=== PATIENT | female | born 1985 | race Caucasian/White ===

== ENCOUNTER 2024-11-15 14:38 | Emergency (ER) | payer MEDICAID, SELFPAY ==
--- NOTE | 2024-11-15 14:50 | ED_ITS ---
HPI - General Adult General Chief complaint: Overdose Stated complaint: OD,NARCAN GIVEN W/GOOD RESULT PER EMS Time Seen by Provider: 11/15/24 14:42 Source: patient and EMS Mode of arrival: EMS Limitations: other (Patient very poor historian) History of Present Illness ED Provider: MELINDA Willoughby HPI narrative: This is a 39-year-old female history of substance use disorder presents to the emergency department via ambulance with concerns for overdose unclear on what. According to EMS patient was found in the lobby of the police department, minimally responsive was given Narcan x2, 4 mg intranasal with good effect. After Narcan was given patient was subsequently incontinent of stool and very nauseous. When I asked her what she used she refuses to tell me. She states she just does not feel good after they gave her medicine. She does not remember what she used. Denies pain. She is angry to be here. Not si not hi. Related Data Allergies Allergy/AdvReac Type Severity Reaction Status Date / Time No Known Allergies Allergy Unverified 11/15/24 15:08 [No Known Allergies*] Review of Systems Review of Systems: Yes all other systems are reviewed and are negative [facility] Past Medical History Attestation statement: The following information was validated with the patient. Source: old records reviewed and nursing notes reviewed Medical History (Updated 11/15/24 @ 16:23 by Gerri Curiel) Suicidal ideation Physical Exam ED Vital Signs: Vital Signs - 24 hr 11/15/24 16:21 Temperature 98 F Pulse Rate 77 Respiratory Rate 16 Blood Pressure 100/71 Pulse Oximetry 97 Oxygen Delivery Method Room Air BMI result Body Mass Index 22.7 vss Appearance: Alert.? Oriented X3.? No acute distress.? Head: Normocephalic, atraumatic, no step-offs or deformities Eyes: Pupils equal, round and reactive to light.? Neck: Normal inspection.? Neck supple.? CVS: Refusing. No cardiopulmonary distress noted Respiratory: No respiratory distress.? Abdomen: Refused Skin: Skin warm and dry.? Normal skin color.? Normal skin turgor.? Extremities: 5/5 strength to bilateral upper and lower extremities Neuro: Oriented X 3.? No motor deficit.? No sensory deficit. CN 2-12 intact Course Reevaluation(s) Reevaluation #1: Patient gave the wrong information on arrival the name in the chart is incorrect. Her boyfriend states name is Matilda Larsen, 89 this was also confirmed w/ PD. Will speak to registration about fixing patients chart. Time: 16:04 Reevaluation #2: Patient came in soiled she was cleaned up. She is refusing any further intervention refusing vital signs. Refusing x-ray. Refusing CT scan. She is alert and oriented x4. She states she just does not feel well after Narcan. She is refusing all care and states she would like to leave. I explained to her she can only leave with a sober ride. Will send her home with Narcan Time: 16:12 Reevaluation #3: Patient allowed vitals prior to discharge. She is leaving against medical advice. Significant other here for patient. I did go over risks of leaving against medical advice with patient, charge nurse Stefany Hudson at the bedside. She continues to refuse further care and treatment and she would just like to leave. She signed AMA paperwork. Medical Decision Making Medical Decision Making [facility] Narrative: 39-year-old female presents from police department for she was unresponsive was given Narcan and responded well. Physical exam patient agitated. History and physical exam concerning for opiate overdose as she responded well to Narcan however she is not telling us exactly what she took she says she does not recall. No signs of trauma. No signs of acute respiratory distress. Plan- medical clearance. Differential Diagnosis Differential Diagnoses: The differential diagnosis associated with the presentation includes (History and physical exam concerning for opiate overdose as she responded well to Narcan however she is not telling us exactly what she took she says she does not recall. No signs of trauma. No signs of acute respiratory distress.) Admission/Observation Consideration of admission/observation: Escalation of care including admission/observation considered Lab Data MDM Lab Attestation statement: I reviewed the patient's lab results. Independent Interpretation I performed an independent interpretation of an: Plain X-Ray Radiology Impression Discussion of test interpretation with radiology: I have reviewed the radiologist's reading. Chronic Conditions Patient?s care impacted by: Other (see hpi ) Critical Care Time Critical Care Time Critical Care Time: No Discharge Plan Discharge Clinical Impression: Drug overdose Patient Disposition: Left Against Medical Advice Instructions: Adult Overdose (ED) Additional Instructions: Take your medications as prescribed. If you were prescribed antibiotics today, it is important that you take your medication to their entirety, do not skip any doses, do not finish them early. Follow-up with your primary care provider this week. Return to the emergency department with new or worsening symptoms. Such as fevers, chills, chest pain, shortness of breath, nausea, vomiting, dizziness, headache, vision changes, lethargy In case of emergency call 911 You have refused medical care in your refusing laboratory studies, imaging. You are leaving against medical advice Risks include , respiratory distress, worsening condition, decreased quality of life. You verbalized understanding of this. We have given you Narcan police have this finding at all times. This can save your life. Stand Alone Forms: Against Medical Advice Print Language: Mohawk
[2024-11-15 15:07] VITALS: BP 140/77; PULSE 96; O2SAT 99; BMI 22.7
--- NOTE | 2024-11-15 16:08 | PC.NURSE ---
Patients friend sotero confirmed patients identity- pa and registration aware chart to be updated
[2024-11-15 16:21] VITALS: BP 100/71; PULSE 77; RESP 16; TEMP 36.6; O2SAT 97
--- NOTE | 2024-11-15 16:49 | PC.NURSE ---
This RN worked with the provider and registration, along with PD and primary nurse to attempt and locate pts actual legal name as the initial account was not the right person, staff was able to get the correct information and able to merge the charts. Pt friend Ned who was the one who found her on the ground was at bedside to take her out of ED. Pt signed AMA, downtime form filled out as pt chart was still the wro
--- NOTE | 2024-11-15 16:54 | PC.NURSE ---
This RN/PA/primary RN/PD/registration attempted to get patient information as she was registered under the wrong name. Pt was not able to give us any identifying information. Primary RN was able to get in contact with her friend Ned who was able to verify her information, charts were able to be be merged. Down time AMA form done as it was before the charts were merged. This RN and PA went to bedside and went through risks of leaving AMA, pt still wanted to leave, form signed, Ned present to walk her out of ED. Vitals able to be obtained prior to dc.
[2024-11-15 17:00] VITALS: BP 100/71; PULSE 77; RESP 16; TEMP 36.6; O2SAT 97
== END 2024-11-15 17:00 | disposition left against medical advice (07) ==
LOC: HO.ED 16:47
PROVIDERS: Emergency Provider Emergency Medicine; PCP Family Medicine
DX: T40.2X1A Poisoning by other opioids, accidental (unintentional), initial encounter (principal); R40.4 Transient alteration of awareness; R45.1 Restlessness and agitation; Z71.51 Drug abuse counseling and surveillance of drug abuser
CPT/HCPCS: 99283

== ENCOUNTER 2024-11-15 16:16 | Outpatient (REF) | payer SELFPAY | END 2024-11-15 16:17 | disposition home or self-care (01) | LOC: CF 16:16 | DX: Z13.89 Encounter for screening for other disorder (principal) ==

== ENCOUNTER 2024-12-04 00:37 | Emergency (ER) | payer MEDICAID, SELFPAY ==
[2024-12-04 00:40] VITALS: BP 118/91; PULSE 90; RESP 18; O2SAT 93; BMI 19.9
--- NOTE | 2024-12-04 00:43 | PC.NURSE ---
Once pt became more alert, vitals were obtained at which time she required frequent verbal stimulation due to somnolence. Once vitals completed, RN attempted to guide patient to nearby stretcher at which time she declined stating I didn't do that much, i m fine. I hate this hospital . RN obtained OSWALDO Lea for primary evaluation and to discuss concerns, risks and dangers of premature departure from the ER up to and including . The pt was not very receptive, often interrupting the provider during the conversation however despite this the patient did report that she was aware of and knew the consequences of Narcan wearing off in her system before the narcotics or drugs did. she was awake, alert, verbal, and ambulating independently without distress noted at time of departure from the triage area.
[2024-12-04 01:12] VITALS: BP 118/91; PULSE 90; RESP 18; TEMP 36.8; O2SAT 93
== END 2024-12-04 01:05 | disposition left against medical advice (07) ==
PROVIDERS: Emergency Provider Internal Medicine; PCP Family Medicine
DX: T50.901A Poisoning by unspecified drugs, medicaments and biological substances, accidental (unintentional), initial encounter (principal); R40.0 Somnolence; Y92.9 Unspecified place or not applicable; F14.10 Cocaine abuse, uncomplicated; F43.12 Post-traumatic stress disorder, chronic; F39 Unspecified mood [affective] disorder; Z53.29 Procedure and treatment not carried out because of patient's decision for other reasons
CPT/HCPCS: 99281; 99282

== ENCOUNTER 2025-04-08 21:41 | Emergency (ER) | payer SELFPAY ==
--- NOTE | ~2025-04-08 | XR_ITS ---
CLINICAL HISTORY: deformity trauma 2 view right forearm Comparison: CR - XR WRIST RT 2V - 04/08/25 22:41 EDT Findings: Please see same-day wrist report for discussion of distal radius fracture. No fracture deformity of the proximal radius or ulna. Visualized portions of the elbow are unremarkable. No joint effusion. No significant arthritic change. No radiopaque foreign body. IMPRESSION: No fracture deformity of the proximal radius or ulna. This document has been electronically signed by: Ferny Harman MD on 04/08/2025 23:22:32
--- NOTE | ~2025-04-08 | XR_ITS ---
CLINICAL HISTORY: deformity trauma 3 view right wrist Comparison: None provided Findings: There is a comminuted transverse fracture of the distal radius with 1/2 shaft width of dorsal displacement of the distal fragment. Fracture is impacted by 1 cm. Fracture extends along the dorsal surface to involve the dorsal articular surface of the radius. No acute fracture deformity of the ulna. There is widening of the distal radioulnar joint. No radiopaque foreign body. IMPRESSION: Impacted, comminuted and intra-articular distal radius fracture with dorsal displacement. This document has been electronically signed by: Ferny Harman MD on 04/08/2025 23:21:46
--- NOTE | ~2025-04-08 | XR_ITS ---
CLINICAL HISTORY: post reduction 1 view right wrist Comparison: CR - XR WRIST RT 2V - 04/08/25 22:41 EDT Findings: There has been improvement of alignment of the distal radial fracture. Fracture is now impacted by 5 mm and there is 6 mm of dorsal displacement. Fracture remains comminuted with extension to the dorsal articular surface. No significant loss of joint space, osteophyte, or erosions. There is splint material, partially obscuring fine detail. IMPRESSION: 1. Interval improvement in alignment of the distal radial fracture. This document has been electronically signed by: Ferny Harman MD on 04/09/2025 02:26:31
[2025-04-08 22:12] VITALS: BP 118/68; PULSE 82; RESP 20; TEMP 36.9; O2SAT 98; BMI 21.5
--- NOTE | 2025-04-08 22:25 | PC.NURSE ---
assumed care of pt, in no apparent distress, ambulatory and A+Ox3
--- NOTE | 2025-04-08 22:40 | PC.NURSE ---
pt ambulated to recieve xray of right wrist and forearm
--- NOTE | 2025-04-08 22:48 | PC.NURSE ---
pt ambulated back to room, warm blanket given for comfort and ice packet given to relieve wrist pain
--- NOTE | 2025-04-08 23:53 | ED_ITS ---
HPI - General Adult General Chief complaint: Fall Stated complaint: right hand and arm and head injury Time Seen by Provider: 04/08/25 23:15 Source: patient Limitations: no limitations History of Present Illness ED Provider: Elham Lea PA-C HPI narrative: 40-year-old female with a history of polysubstance abuse, mood disorder, PTSD, who presents after fall. Patient states she jumped out of the 1st floor [place] a [place], she states she was locked out of her home. Patient slipped and fell, landing on the right wrist then struck the right side of her face on the ground. Patient has obvious deformity to the right wrist. Related Data Previous Rx's ?Medication ?Instructions ?Recorded ketorolac 10 mg tablet 10 mg PO Q6H PRN pain #20 ta bs 04/09/25 Allergies Allergy/AdvReac Type Severity Reaction Status Date / Time No Known Allergies (No Known Allergy Unverified 04/08/25 22:18 Allergies*) Review of Systems 2 Review of Systems: Yes all other systems are reviewed and are negative Constitutional: Constitutional: Denies fatigue and Denies fever(s) Musculoskeletal: Musculoskeletal: Reports arthralgias and Reports joint swelling Endocrine: Endocrine: Denies fatigue PMFSH Past Medical History Attestation statement: The following information was validated with the patient. Medical History (Updated 04/09/25 @ 04:33 by MELINDA Lerner) Suicidal ideation Social History Social History Smoked in Last 30 Days: Yes Use of substances other than those prescribed or required for medical reasons: Yes Substance Use Type: Crack/Cocaine, Heroin and Marijuana Substance Use Type Other:: fentanyl Substance Use Frequency: Monthly Advance Directives: No Advance Directives Information Provided: No Patient : No Physical Exam ED Vital Signs: Vital Signs - 24 hr 04/08/25 22:12 04/09/25 02:40 Temperature 98.4 F Pulse Rate 82 78 Respiratory Rate 20 20 Blood Pressure 118/68 148/85 H Pulse Oximetry 98 99 Oxygen Delivery Method Room Air Room Air BMI result Body Mass Index 21.5 Const Other: Awake, appears older than stated age, 3 cm linear laceration over right brow no longer bleeding deep to subcu tissue Orientation/consciousness: patient oriented x3 Resp Effort & Inspection: normal respiratory effort Cardio Other: Normal peripheral perfusion Skin Other: Warm dry no rash Neuro General: patient oriented x3, gait normal, no focal motor deficits and CN's II- XI intact bilaterally Extrem Other: The right wrist is swollen and ecchymotic with deformity at the wrist along the radial aspect, unable to flex or extend, she can move her fingers sensation intact Psych Other: Anxious, uncooperative at times, difficult to manage her pain Course Consultations Consultation #1: per ortho .... Dr. Mercado...... The patient follow up in the office, I have let her know that I reduce the fracture and place the patient in a splint, she was in agreement with the plan. Time: 23:54 Medications Administered Discontinued Medications Generic Name Dose Route Start Last Admin Trade Name Freq PRN Reason Stop Dose Admin Hydromorphone HCl 1 mg 04/09/25 00:52 04/09/25 01:02 Hydromorphone Hcl 1 Mg/Ml Syringe IVPUSH 04/09/25 00:53 1 mg ONCE ONE Administration Protocol Hydromorphone HCl 1 mg 04/09/25 01:16 04/09/25 01:20 Hydromorphone Hcl 1 Mg/Ml Syringe IVPUSH 04/09/25 01:17 1 mg ONCE ONE Administration Protocol Midazolam HCl 4 mg 04/09/25 00:52 04/09/25 01:09 Midazolam Hcl 2 Mg/2 Ml Vial IVPUSH 04/09/25 00:53 4 mg ONCE ONE Administration Naloxone HCl 4 mg 04/09/25 01:25 04/09/25 01:27 Naloxone Hcl Nasal 4 Mg [employer] NOSTRILALT 04/09/25 01:26 4 mg ONCE ONE Administration Procedures Procedure Narrative Procedure Narrative: Ultrasound-guided IV 18 gauge 1-3/4 inch IV placed in left upper extremity, adequate blood return, flushes well, secured with Tegaderm Laceration Laceration 1: Site: face Side (If applicable): right Size (cm): 2 Description: linear Depth: simple, single layer Local Anesthetic: lidocaine 1% and with epi Amount of anesthesia used (mL): 3 Pre-repair: irrigated extensively Skin layer closed with: vicryl Size (cm): 5-0 Number of sutures: 6 Technique: simple, interrupted Orthopedic Fracture Reduction Fracture #1: Time Out Performed: No Side: right Fracture Reduction Location: radius Analgesia: other (P.r.n. Dilaudid and Versed) Technique: traction splint and finger traps Post Reduction X-rays Demonstrate: other (Not as reduced as I would like, the patient did not tolerate it well, we will not allow for another attempt) Post-reduction neuro exam: intact Post-reduction vascular exam: intact Splint Applied: Yes Patient Tolerated Procedure: other (Difficult to manage pain, she did not tolerate the procedure well despite the use of Dilaudid and Versed) Orthopedic Splinting/Casting Injury #1: Side: right Upper Extremity Injury Location: wrist Upper Extremity Immobilizer: sling/shoulder immobilizer and sugar tong splint Medical Decision Making Medical Decision Making MDM Narrative: 40-year-old female with a history of polysubstance abuse, mood disorder, PTSD, who presents after fall. Patient states she jumped out of the 1st floor of a [place] ranch, she states she was locked out of her home. Patient slipped and fell, landing on the right wrist then struck the right side of her face on the ground. Patient has obvious deformity to the right wrist. Problem: Polysubstance abuse History: Per patient I have considered the following differential diagnoses: Fracture, dislocation, contusion, laceration, sprain Plan: X-rays obtained from triage, she has a distal radial fracture. She will require fracture reduction and splinting. She also has a laceration. Her tetanus is not up-to-date. We will reach out to orthopedic service for follow up guidance. We will have to heavily mitigate the patient given she has tolerance secondary to her known IV drug abuse, which she has been very forthcoming about. I will not be sending the patient with opiate analgesia, they actively use heroin. I will send with Toradol. I have independently reviewed the following tests: Labs: No leukocytosis, not anemic, no electrolyte abnormality noted, not Right forearm:Findings: Please see same-day wrist report for discussion of distal radius fracture. No fracture deformity of the proximal radius or ulna. Visualized portions of the elbow are unremarkable. No joint effusion. No significant arthritic change. No radiopaque foreign body. IMPRESSION: No fracture deformity of the proximal radius or ulna. Right wrist, Findings: There is a comminuted transverse fracture of the distal radius with 1/2 shaft width of dorsal displacement of the distal fragment. Fracture is impacted by 1 cm. Fracture extends along the dorsal surface to involve the dorsal articular surface of the radius. No acute fracture deformity of the ulna. There is widening of the distal radioulnar joint. No radiopaque foreign body. IMPRESSION: Impacted, comminuted and intra-articular distal radius fracture with dorsal displacement. Right wrist postreduction film:Findings: There has been improvement of alignment of the distal radial fracture. Fracture is now impacted by 5 mm and there is 6 mm of dorsal displacement. Fracture remains comminuted with extension to the dorsal articular surface. No significant loss of joint space, osteophyte, or erosions. There is splint material, partially obscuring fine detail. IMPRESSION: 1. Interval improvement in alignment of the distal radial fracture. Lab Data 04/09/25 00:42 04/09/25 00:42 Labs: Lab Results 04/09/25 Range/Units 00:42 WBC 8.9 (4.8-10.8) X10*3/uL RBC 3.80 L (4.20-5.50) X10*6/uL Hgb 10.7 L (12.0-16.0) g/dl Hct 32.1 L (37.0-47.0) % MCV 84.5 (80.0-98.0) fL MCH 28.2 (27.0-33.0) pg MCHC 33.3 (31.0-35.0) g/dl RDW 13.2 (11.0-16.0) % Plt Count 301 (160-400) X10*3/uL MPV 10.4 (9.4-12.3) fL Immature Gran % (Auto) 0.4 (0.0-0.4) % Neut % (Auto) 76.2 H (45-73) % Lymph % (Auto) 15.9 L (20-40) % F[place]ardo % (Auto) 7.0 (2-11) % Eos % (Auto) 0.4 (0-4) % Baso % (Auto) 0.1 (0-2) % Lymph # (Auto) 1.4 (1.2-4.9) X10*3/uL [place]ardo # (Auto) 0.6 (0.1-1.2) X10*3/uL Eos # (Auto) 0.0 (0.0-0.4) X10*3/uL Baso # (Auto) 0.0 (0.0-0.2) X10*3/uL Abs Immat Gran (auto) 0.04 H (0.00-0.03) X10*3/uL Absolute Neuts (auto) 6.8 (2.0-8.3) x10*3/uL Absolute Nucleated RBC 0.000 (0.0-0.012) X10*3/uL Nucleated RBC % (auto) 0.0 (0.0-0.2) /100WBC Sodium 138 (135-145) mmol/L Potassium 4.8 (3.3-5.1) mmol/L Chloride 103 (96-108) mmol/L Carbon Dioxide 24 (22-29) mmol/L Anion Gap 16 (12-20) BUN 7 L (9-16) mg/dL Creatinine 0.60 (0.5-1.4) mg/dL Estim Creat Clear Calc 86.7 Estimated GFR > 60 Random Glucose 101 (60-115) mg/dL Calcium 8.6 (8.4-10.2) mg/dL Magnesium 1.9 (1.6-2.6) mg/dL Total Bilirubin 0.2 (0.0-1.0) mg/dL AST 34 H (5-31) U/L ALT 12 (0-31) U/L Alkaline Phosphatase 78 (39-117) U/L Total Protein 7.6 (6.5-8.0) g/dL Albumin 4.3 (3.5-5.0) g/dL Beta HCG, Quant < 2 mIU/mL Critical Care Time Critical Care Time Critical Care Time: Yes Total Critical Care Time: 45 Attestation: I Elham Lea PA-C have personally performed 45 minutes of critical care time not including lines and procedures; fracture requiring fracture reduction and splinting, IV analgesia, laceration Discharge Plan Discharge Clinical Impression: Distal radius fracture, right, Laceration of eyebrow, right Patient Disposition: Home, Self-Care Instructions: Wrist Fracture in Adults (ED), Facial Laceration (ED) Additional Instructions: 6 stitches were used to repair your laceration, they will dissolve on their own. Your tetanus vaccine was updated. In regard to the fracture, I have provided you with the orthopedic provider who will be seeing you as an outpatient, her name is Dr. Mercado. Call tomorrow to schedule a follow up appointment. Use the ketorolac as needed for pain. Prescriptions: New ketorolac 10 mg tablet 10 mg PO Q6H PRN (Reason: pain) Qty: 20 0RF Rx Instructions: maximum total duration of 5 days from all oral, intranasal, or parenteral formulations. The patient received an IV dose of Toradol here in the emergency room. Referrals: Kelly Mercado MD [Physician, Hand Surgery] Referral Note: right distal radial fx Print Language: Liberian
[2025-04-09 00:46] LABS: Hematocrit 32.1 % (37.0-47.0); Hemoglobin 10.7 g/dl (12.0-16.0); Imm Gran Abs Auto 0.04 X10*3/uL (0.00-0.03); Imm Gran Pct Auto 0.4 % (0.0-0.4); Lymphocytes Absolute Auto 1.4 X10*3/uL (1.2-4.9); MANUAL DIFF FLAG NO; Mean Corpuscular HGB Conc 33.3 g/dl (31.0-35.0); Mean Corpuscular Hemoglobin 28.2 pg (27.0-33.0); Mean Corpuscular Volume 84.5 fL (80.0-98.0); NRBC Abs Auto 0.000 X10*3/uL (0.0-0.012); NRBC Pct Auto 0.0 /100WBC (0.0-0.2); Platelet Count 301 X10*3/uL (160-400); Red Blood Count 3.80 X10*6/uL (4.20-5.50); White Blood Count 8.9 X10*3/uL (4.8-10.8)
[2025-04-09 01:11] LABS: Alanine Aminotransferase 12 U/L (0-31); Albumin Level 4.3 g/dL (3.5-5.0); Alkaline Phosphatase 78 U/L (39-117); Anion Gap 16 (12-20); Aspartate Amino Transferase 34 U/L (5-31); Blood Urea Nitrogen 7 mg/dL (9-16); Calcium 8.6 mg/dL (8.4-10.2); Carbon Dioxide 24 mmol/L (22-29); Chloride 103 mmol/L (96-108); Creatinine Clr Calc Pharmacy 86.7; Estimated Glomerular Filt Rate > 60; Magnesium 1.9 mg/dL (1.6-2.6); Potassium 4.8 mmol/L (3.3-5.1); Sodium 138 mmol/L (135-145); Total Protein 7.6 g/dL (6.5-8.0)
[2025-04-09] MEDS: Naloxone HCl Nasal 4 MG SPRAY NOSTRILALT (01:27)
[2025-04-09 02:40] VITALS: BP 148/85; PULSE 78; RESP 20; O2SAT 99
[2025-04-09 04:46] VITALS: BP 134/92; PULSE 61; RESP 16; TEMP 36.6; O2SAT 100
[2025-04-09] MEDS: Diphth,Pertus(ACell),Tet Adult 0.5 ML SYRINGE IM (04:47)
[2025-04-09 04:53] VITALS: BP 134/92; PULSE 61; RESP 16; TEMP 36.6; O2SAT 100
== END 2025-04-09 04:53 | disposition home or self-care (01) ==
PROVIDERS: Physician Assistant Medical; Emergency Provider Emergency Medicine
DX: S01.111A Laceration without foreign body of right eyelid and periocular area, initial encounter (principal); S52.91XA Unspecified fracture of right forearm, initial encounter for closed fracture; R10.2 Pelvic and perineal pain; M25.531 Pain in right wrist; X50.1XXA Overexertion from prolonged static or awkward postures, initial encounter; W17.89XA Other fall from one level to another, initial encounter; Y93.39 Activity, other involving climbing, rappelling and jumping off; Y92.003 Bedroom of unspecified non-institutional (private) residence as the place of occurrence of the external cause; Y99.8 Other external cause status; Z23 Encounter for immunization; Z79.899 Other long term (current) drug therapy
CPT/HCPCS: 12011; 25605; 29125; 36415; 73090; 73100; 73110; 80053; 83735; 84702; 85025; 90471; 90715; 96374; 96375; 99284; 99291; J1171; J1885; J2250

== ENCOUNTER → 2025-04-08 21:41 | Outpatient (BNV) | payer MEDICAID, SELFPAY | PROVIDERS: Emergency Provider Emergency Medicine; Visit Provider Radiology Diagnostic Radiology | DX: S52.501A Unspecified fracture of the lower end of right radius, initial encounter for closed fracture (principal); M21.931 Unspecified acquired deformity of right forearm | CPT/HCPCS: 73090; 73100 ==

== ENCOUNTER → 2025-04-09 02:00 | Outpatient (BNV) | payer MEDICAID, SELFPAY | PROVIDERS: Emergency Provider Emergency Medicine; Visit Provider Radiology Diagnostic Radiology | DX: S52.501D Unspecified fracture of the lower end of right radius, subsequent encounter for closed fracture with routine healing (principal) | CPT/HCPCS: 73110 ==

== ENCOUNTER 2025-04-20 08:54 | Outpatient (REF) | payer MEDICAID, SELFPAY | END 2025-04-20 08:55 | disposition home or self-care (01) | LOC: HO.HOSX 08:54 | PROVIDERS: Visit Provider Orthopaedic Surgery | DX: Z13.89 Encounter for screening for other disorder (principal) ==

== ENCOUNTER 2025-04-28 08:23 | Outpatient (REF) | payer SELFPAY | END 2025-04-28 08:24 | disposition home or self-care (01) | LOC: HO.HOSX 08:23 | PROVIDERS: Visit Provider Orthopaedic Surgery | DX: Z13.89 Encounter for screening for other disorder (principal) ==